=== PATIENT | male | born 1965 | race Caucasian/White ===

== ENCOUNTER 2018-07-06 16:20 | Emergency (ER) | payer OTHER ==
[2018-07-06] MEDS: TRIMETHOPRIM/SULFAMETHOX (DS) TAB PO (18:36)
[2018-07-06] MEDS: ACETAMINOPHEN 325 MG TAB PO (18:36)
[2018-07-06] MEDS: ONDANSETRON (ODT) 4 MG TAB ODT (18:36)
[2018-07-06] MEDS: CEPHALEXIN 500 MG CAP PO (18:36)
== END 2018-07-06 18:43 | disposition home or self-care (01) ==
LOC: E/R 16:20
DX: L03.116 Cellulitis of left lower limb (principal); S90.31XA Contusion of right foot, initial encounter; J44.9 Chronic obstructive pulmonary disease, unspecified; F17.210 Nicotine dependence, cigarettes, uncomplicated; X58.XXXA Exposure to other specified factors, initial encounter; Y92.9 Unspecified place or not applicable
CPT/HCPCS: 99283; Z7502